=== PATIENT | female | born 1950 | race Two or more races ===

== ENCOUNTER 2019-10-05 05:33 | Day surgery (SDC) | payer OTHER ==
[~2019-10-05 05:33] MED LIST: ORPH100T PO; PEPCID AC20 MG PO; PROTONIX40 MG PO; SYNTHROID75 MCG PO; TENORMIN50 M1 PO
== END 2019-10-05 10:30 | disposition home or self-care (01) ==
LOC: CIR.AMB 05:33 → ADM 07:45 → CIR.AMB 07:45
PROVIDERS: ATTEND Specialist
DX: L72.0 Epidermal cyst (principal)

== ENCOUNTER 2021-12-29 09:50 | Emergency (ER) | payer OTHER ==
[~2021-12-29] VITALS: Ht 152.4 cm; Wt 63.5 kg
== END 2021-12-29 11:13 ==
LOC: ER 09:50
DX: M25.561 Pain in right knee (principal); M19.90 Unspecified osteoarthritis, unspecified site; I10 Essential (primary) hypertension; Z88.8 Allergy status to other drugs, medicaments and biological substances

== ENCOUNTER 2022-07-15 08:38 | Outpatient (CLI) | payer OTHER | END 2022-07-15 08:39 | disposition home or self-care (01) | LOC: NUCLEAR 08:38 | PROVIDERS: ATTEND Internal Medicine Cardiovascular Disease | DX: R07.9 Chest pain, unspecified (principal) ==

== ENCOUNTER 2024-06-23 07:54 | Emergency (ER) | payer OTHER ==
[~2024-06-23] VITALS: Ht 152.4 cm; Wt 63.5 kg
[2024-06-23] MEDS ORDERED: COZAAR25 MG (08:05)
[2024-06-23] MEDS ORDERED: LEVOTHYROXINE25 MCG (08:05)
[2024-06-23 10:35] LABS: HEMATOCRIT 37.7 % (36.0-45.00); HEMOGLOBIN 12.9 g/dL (12.0-15.00); MEAN CELL VOLUME 88.7 fL (80.00-100.00); MEAN CORPUSCULAR HEMOGLOBIN 30.3 pg (27.00-32.0); MEAN CORPUSCULAR HGB CONC 34.2 g/dl (32.0-36.0); PLATELET COUNT 246 K/uL (150-450); RED BLOOD COUNT 4.25 M/uL (4.00-6.00); RED CELL DISTRIBUTION WIDTH 13.8 % (11.5-14.5)
[2024-06-23 10:54] LABS: CALCIUM 9.2 mg/dL (8.5-10.1); CREATININE SERUM 0.53 mg/dL (0.55-1.02); GFR 113.08; POTASSIUM 3.95 mEq/L (3.5-5.1)
[2024-06-23 15:22] LABS: URINE APPEARANCE Clear; URINE BILIRRUBIN Negative (NEGATIVE); URINE BLOOD Negative; URINE COLOR Yellow; URINE GLUCOSE Negative (NEGATIVE); URINE KETONE Negative (NEGATIVE); URINE LEUKOCYTE Negative; URINE NITRATE Negative; URINE PROTEIN Negative (NEGATIVE); URINE UROBILINOGEN 0.2 E.U./dl
[2024-06-23 15:25] LABS: URINE BACTERIA 18.3 uL (0.0-1933)
[2024-06-23] MEDS ORDERED: FAMOtidine 10 MG/ML (4ML VIAL) IV ONE (15:45)
[2024-06-23] MEDS ORDERED: AMIODARONE HCL 50 MG/ML AMPUL IV ONE (15:45)
[2024-06-23] MEDS ORDERED: 0.9 % SODIUM CHLORIDE 1,000 ML IV ONE (15:45)
[2024-06-23 15:51] LABS: URINE EPITHELIAL CELLS 0.6 uL (0.0-38.8); URINE WBC 0.4 uL (0.0-23.2)
[2024-06-23 16:53] LABS: PARTIAL THROMBOPLASTIN TIME 23.3 SECONDS (22.0-34.0); PROTHROMBIN TIME 10.9 SECONDS (9.0-11.5)
[2024-06-23 17:50] LABS: INR 1.03; PARTIAL THROMBOPLASTIN TIME 26.8 SECONDS (22.0-34.0); PROTHROMBIN TIME 11.2 SECONDS (9.0-11.5)
[2024-06-23] MEDS ORDERED: MOTION SICKNESS25 M1 PO (18:22)
== END 2024-06-23 18:36 | disposition home or self-care (01) ==
LOC: ER 07:56
PROVIDERS: General Practice
DX: R06.02 Shortness of breath (principal); R55 Syncope and collapse; Z88.6 Allergy status to analgesic agent; I48.91 Unspecified atrial fibrillation; Z20.822 Contact with and (suspected) exposure to COVID-19; R01.1 Cardiac murmur, unspecified; I10 Essential (primary) hypertension

== ENCOUNTER 2024-07-08 07:58 | Outpatient (CLI) | payer OTHER ==
[~2024-07-08 07:58] MED LIST changes: +COZAAR25 MG; +LEVOTHYROXINE25 MCG; +MOTION SICKNESS25 M1 PO
[2024-07-08 08:43] LABS: HEMATOCRIT 37.8 % (36.0-45.00); HEMOGLOBIN 12.4 g/dL (12.0-15.00); MEAN CORPUSCULAR HEMOGLOBIN 29.3 pg (27.00-32.0); PLATELET COUNT 245 K/uL (150-450); RED BLOOD COUNT 4.24 M/uL (4.00-6.00); RED CELL DISTRIBUTION WIDTH 13.9 % (11.5-14.5)
[2024-07-08 09:19] LABS: MYCOPLASMA PNEUMONIAE IGM NON REACTIVE (NO REACTIVE)
[2024-07-08 09:35] LABS: ALBUMIN 3.5 gm/dL (3.4-5.0); BILIRUBIN TOTAL 0.33 mg/dL (0.3-1.2); CALCIUM 9.4 mg/dL (8.5-10.1); CHOL HDL RATIO 3.1 (0-5.0); CREATININE SERUM 0.59 mg/dL (0.55-1.02); GFR 99.91; GLOBULINA 3.9 G/DL (2.4-3.5); POTASSIUM 4.49 mEq/L (3.5-5.1); T4 TOTAL 10.48 UG/DL (4.8-13.9); TOTAL PROTEIN 7.4 gm/dL (6.4-8.2); TSH 3.08 uIU/mL (0.358-3.74)
[2024-07-08 09:51] LABS: URINE APPEARANCE Clear; URINE BACTERIA 331.6 uL (0.0-1933); URINE BILIRRUBIN Negative (NEGATIVE); URINE BLOOD Negative; URINE COLOR Yellow; URINE EPITHELIAL CELLS 54.4 uL (0.0-38.8); URINE GLUCOSE Negative (NEGATIVE); URINE KETONE Negative (NEGATIVE); URINE LEUKOCYTE Negative; URINE NITRATE Negative; URINE PROTEIN Negative (NEGATIVE); URINE UROBILINOGEN 0.2 E.U./dl; URINE WBC 4.2 uL (0.0-23.2)
[2024-07-08 11:09] LABS: T3 TOTAL 1.46 ng/ml (0.846-2.02); VITAMIN D3 25 HYDROXY 28.53 ng/ml (30-120)
== END 2024-07-08 08:02 | disposition home or self-care (01) ==
LOC: LAB 07:58
PROVIDERS: ATTEND Internal Medicine Cardiovascular Disease
DX: J11.1 Influenza due to unidentified influenza virus with other respiratory manifestations (principal); A49.3 Mycoplasma infection, unspecified site; Z20.822 Contact with and (suspected) exposure to COVID-19; E03.9 Hypothyroidism, unspecified; I10 Essential (primary) hypertension; E11.9 Type 2 diabetes mellitus without complications; E78.2 Mixed hyperlipidemia; D64.0 Hereditary sideroblastic anemia; Z12.11 Encounter for screening for malignant neoplasm of colon; E55.9 Vitamin D deficiency, unspecified; M81.0 Age-related osteoporosis without current pathological fracture